=== PATIENT | female | born 1965 | race African-American/Black ===

== ENCOUNTER 2020-06-19 07:57 | Emergency (ER) | payer MEDICAID ==
[2020-06-19] MEDS ORDERED: IV NS 0.9% 500 ML BAG IV ONE (08:30)
[2020-06-19] MEDS ORDERED: ONDANSETRON HCL/PF 4 MG/2 ML VIAL ONE (09:25)
[2020-06-19] MEDS ORDERED: ONDANSETRON HCL/PF - ER 4 MG/2 ML VIAL IV ONE (09:30)
[2020-06-19] MEDS ORDERED: MORPHINE SULFATE INJ 10 MG/ML DISP.SYRIN IV ONE (10:00)
[2020-06-19] MEDS ORDERED: PIPERACILLIN /TAZOBACTAM 3.375 G in IV D5W 50 ML IV ONE (10:30)
[2020-06-19] MEDS ORDERED: FLAGYL/NS RTU 500 MG/100 ML PIGGYBACK IV ONE (10:30)
[2020-06-19] MEDS ORDERED: PIPERACILLIN /TAZOBACTAM 3.375 G VIAL IV ONE (10:46)
[2020-06-19] MEDS ORDERED: METRONIDAZOLE 500MG/ NS 100ML 100 ML IV ONE (10:46)
== END 2020-06-19 12:36 | disposition short-term general hospital (02) ==
DX: K52.9 Noninfective gastroenteritis and colitis, unspecified (principal); I69.351 Hemiplegia and hemiparesis following cerebral infarction affecting right dominant side; K21.9 Gastro-esophageal reflux disease without esophagitis; I10 Essential (primary) hypertension; E11.9 Type 2 diabetes mellitus without complications; Z88.6 Allergy status to analgesic agent; R00.0 Tachycardia, unspecified
CPT/HCPCS: 36415; 71045; 74176; 80048; 80076; 81001; 83690; 84484; 85025; 87086; 87426; 93005; 96365; 96367; 96375; 99285; C9803; J2270; J2405; J2543; J7060